=== PATIENT | male | born 1955 | race Caucasian/White ===

== ENCOUNTER → 2017-08-07 | Outpatient (CLI) | payer MEDICARE, OTHER ==
--- NOTE | 2017-08-07 14:48 | Diagnostic Imaging Report ---
Indication: 62-year-old male inpatient chronic severe lower back pain, history of spine surgery in 199911/30/14 Technique: Sagittal T1 and T2 fast spin echo, sagittal STIR, axial T1 and T2 fast spin-echo images of the lumbar spine Comparison: None Findings: Interspinous fusion devices are seen bridging L3-4 and L4-5 spinous processes. There is trace susceptibility artifact related to these, which may slightly obscure adjacent structures and could obscure pathology. The bony alignment is normal. The vertebral body heights are preserved. A very low signal, on all sequences, focus is seen within the inferior aspect of L1, most likely a bone island. There are fatty Modic type degenerative changes of the inferior aspect of the L5 vertebral body and adjacent S1. The vertebral body marrow signal is otherwise normal. At L1-2, there is focal disc protrusion on the right, with disc material protruding in the subarticular region, extending 5 mm posterior to the posterior margin of the vertebral body. The portion of the disc protrusion measures approximately 8 mm transverse, and extends approximately 9 mm caudad from the disc. This may impinge upon the right lateral recess. There is equivocally a much smaller focal protrusion on the left which is probably not significant. There is mild generalized circumferential annular bulge, which may slightly compromise the neural foramina. The disc space is preserved At L2-3, is very mild circumferential annular bulge. There is borderline narrowing of the spinal canal at this level, predominantly due to short pedicles as well as very mild facet hypertrophy. The neural foramina are preserved. The disc space is preserved At L3-4, there is generalized circumferential annular bulge. This, in combination with short pedicles and facet hypertrophy results in mild to moderate narrowing of the spinal canal. There is minimal compromise of the neural foramina bilaterally, slightly greater on the left than on the right. Small amount of fluid is seen within the bilateral facet joints. Is the disc space is preserved. At L4-5, there is mild degenerative disc narrowing. There is mild circumferential annular bulge this results in borderline spinal canal narrowing. There may be mild neural foraminal compromise as well, worse on the right than on the left. At L5-S1, there is moderate degenerative disc narrowing. There is circumferential annular bulge. There is also left paracentral focal disc protrusion. This does not significantly narrow the spinal canal, but may impinge to some extent on the left lateral recess and therefore the S1 nerve root. There is at moderate to severe stenosis of the left neural foramen, due to a combination of the protruding disc and facet hypertrophy. There is mild narrowing of the right neural foramen. There is epidural lipomatosis of the sacral spinal canal. The included extraspinal soft tissues are unremarkable. Impression: Multilevel degenerative changes, as detailed on a level by level basis above. Postsurgical changes, as described No acute bony trauma
== END | disposition home or self-care (01) ==
LOC: MRI 13:03
DX: M54.5 Low back pain (principal); M54.30 Sciatica, unspecified side
CPT/HCPCS: 72148